=== PATIENT | male | born 1940 | race Caucasian/White ===

== ENCOUNTER 2022-02-16 16:10 | Inpatient (IN) ==
[2022-02-17 05:02] LABS: Basophils # 0.1 K/mcL (0.0-0.2); Basophils % 0.4 %; Eosinophils # 0.5 K/mcL (0.0-0.6); Eosinophils % 4.1 %; Hematocrit 33.4 % (37.5-50.1); Hemoglobin 10.8 g/dL (12.9-16.9); Immature Granulocytes % 1.4 % (0-4); Lymphocytes # 1.8 K/mcL (0.6-4.6); Lymphocytes % 15.5 %; Mean Corpuscular HGB Conc 32.3 g/dL (31.6-35.5); Mean Corpuscular Hemoglobin 27.9 pg (28.0-33.3); Mean Corpuscular Volume 86.3 fL (83.0-100.0); Monocytes % 8.7 %; Neutrophils # 8.2 K/mcL (1.6-8.9); Platelet Count 245 K/mcL (140-400); Red Blood Count 3.87 M/mcL (4.19-5.50); Red Cell Distribution Width 15.8 % (11.5-14.5); Segmented Neutrophils % 69.9 %; White Blood Count 11.7 K/mcL (4.3-11.1)
[2022-02-17 05:29] LABS: BUN/Creatinine Ratio 21 (6-26); Blood Urea Nitrogen 26 mg/dL (8-23); Calcium 9.2 mg/dL (8.6-10.3); Carbon Dioxide 29 mEq/L (23-29); Chloride 99 mEq/L (98-107); Glucose 95 mg/dL (70-105); Osmolality,Calculated 287 (280-300); Potassium 4.2 mEq/L (3.5-5.1); Sodium 136 mEq/L (136-145); eGFR For African Americans > 60 (> 60); eGFR For Non-African Americans 57 (> 60)
[2022-02-17] MEDS ORDERED: *HR* Enoxaparin 40 MG/0.4 ML SYRINGE SQ SCH (07:00)
[2022-02-17] MEDS ORDERED: Sennosides/Docusate Sodium TABLET PO PRN (14:41)
[2022-02-17] MEDS ORDERED: polyethylene glycoL 3350 17 GM POWD.PACK PO PRN (14:41)
[2022-02-17] MEDS: Budesonide/Formoterol 160/4.5 1 PUFF INH IH SCH ×2 (17:09→21:01)
[2022-02-17] MEDS: Aspirin Enteric Coated 81 MG Tablet PO SCH (21:08)
[2022-02-18] MEDS: Budesonide/Formoterol 160/4.5 1 PUFF INH IH SCH ×2 (07:29→20:58)
[2022-02-18] MEDS: Aspirin Enteric Coated 81 MG Tablet PO SCH (08:27)
[2022-02-18] MEDS: GuaiFENesin Liq 200 MG/10 ML UDC PO PRN (20:31)
[2022-02-18] MEDS: Acetaminophen 325 MG TABLET PO PRN (20:31)
[2022-02-19 05:19] LABS: Hematocrit 33.7 % (37.5-50.1); Mean Corpuscular HGB Conc 32.6 g/dL (31.6-35.5); Mean Corpuscular Hemoglobin 27.9 pg (28.0-33.3); Mean Corpuscular Volume 85.5 fL (83.0-100.0); Mean Platelet Volume 9.8 fL (9.4-12.4); Platelet Count 271 K/mcL (140-400); Red Blood Count 3.94 M/mcL (4.19-5.50); Red Cell Distribution Width 15.2 % (11.5-14.5); White Blood Count 9.1 K/mcL (4.3-11.1)
[2022-02-19 07:22] LABS: Alanine Aminotransferase 38 Units/L (7-52); Albumin 3.1 g/dL (3.5-5.7); Alkaline Phosphatase 61 Units/L (34-104); Aspartate Amino Transferase 38 Units/L (13-39); BUN/Creatinine Ratio 23 (6-26); Bilirubin,Total 0.4 mg/dL (0.3-1.0); Blood Urea Nitrogen 30 mg/dL (8-23); Calcium 9.2 mg/dL (8.6-10.3); Carbon Dioxide 34 mEq/L (23-29); Chloride 100 mEq/L (98-107); Globulin 3.1 g/dL (2.4-3.5); Glucose 98 mg/dL (70-105); Magnesium 2.2 mg/dL (1.6-2.6); Osmolality,Calculated 292 (280-300); Potassium 4.1 mEq/L (3.5-5.1); Sodium 138 mEq/L (136-145); Total Protein 6.2 g/dL (6.4-8.9); eGFR For African Americans > 60 (> 60); eGFR For Non-African Americans 54 (> 60)
[2022-02-19] MEDS: Acetaminophen 325 MG TABLET PO PRN (08:01)
[2022-02-19] MEDS: Aspirin Enteric Coated 81 MG Tablet PO SCH (08:01)
[2022-02-19] MEDS: Budesonide/Formoterol 160/4.5 1 PUFF INH IH SCH ×2 (10:20→20:16)
[2022-02-19] MEDS: GuaiFENesin Liq 200 MG/10 ML UDC PO PRN (20:28)
[2022-02-20] MEDS: Acetaminophen 325 MG TABLET PO PRN (06:28)
[2022-02-20] MEDS: Budesonide/Formoterol 160/4.5 1 PUFF INH IH SCH ×2 (08:12→20:13)
[2022-02-20] MEDS: Aspirin Enteric Coated 81 MG Tablet PO SCH (08:25)
[2022-02-20] MEDS: Fluticasone Propionate Nasal 50 MCG/SPRAY BOTTLE NS PRN (20:52)
[2022-02-21] MEDS: Aspirin Enteric Coated 81 MG Tablet PO SCH (08:48)
[2022-02-21] MEDS: Acetaminophen 325 MG TABLET PO PRN (08:48)
[2022-02-21] MEDS: Budesonide/Formoterol 160/4.5 1 PUFF INH IH SCH ×2 (09:21→20:15)
[2022-02-21] MEDS: Fluticasone Propionate Nasal 50 MCG/SPRAY BOTTLE NS PRN (19:47)
[2022-02-21] MEDS: GuaiFENesin Liq 200 MG/10 ML UDC PO PRN (19:53)
[2022-02-22 05:24] LABS: Basophils # 0.1 K/mcL (0.0-0.2); Basophils % 0.5 %; Eosinophils # 0.3 K/mcL (0.0-0.6); Eosinophils % 3.1 %; Hematocrit 33.8 % (37.5-50.1); Hemoglobin 10.8 g/dL (12.9-16.9); Immature Granulocytes % 0.5 % (0-4); Lymphocytes # 1.8 K/mcL (0.6-4.6); Lymphocytes % 17.8 %; Mean Corpuscular Hemoglobin 27.8 pg (28.0-33.3); Mean Corpuscular Volume 86.9 fL (83.0-100.0); Monocytes # 0.8 K/mcL (0.0-1.3); Monocytes % 7.8 %; Neutrophils # 7.2 K/mcL (1.6-8.9); Platelet Count 307 K/mcL (140-400); Red Blood Count 3.89 M/mcL (4.19-5.50); Red Cell Distribution Width 15.3 % (11.5-14.5); Segmented Neutrophils % 70.3 %; White Blood Count 10.3 K/mcL (4.3-11.1)
[2022-02-22 05:35] LABS: BUN/Creatinine Ratio 18 (6-26); Blood Urea Nitrogen 19 mg/dL (8-23); Calcium 9.3 mg/dL (8.6-10.3); Carbon Dioxide 30 mEq/L (23-29); Chloride 99 mEq/L (98-107); Glucose 95 mg/dL (70-105); Osmolality,Calculated 282 (280-300); Potassium 4.4 mEq/L (3.5-5.1); Sodium 135 mEq/L (136-145); eGFR For African Americans > 60 (> 60); eGFR For Non-African Americans > 60 (> 60)
[2022-02-22] MEDS: Budesonide/Formoterol 160/4.5 1 PUFF INH IH SCH ×2 (07:28→21:45)
[2022-02-22] MEDS: Aspirin Enteric Coated 81 MG Tablet PO SCH (09:43)
[2022-02-23] MEDS: Aspirin Enteric Coated 81 MG Tablet PO SCH (07:43)
[2022-02-23] MEDS: Budesonide/Formoterol 160/4.5 1 PUFF INH IH SCH (08:51)
[2022-02-23 09:05] VITALS: BP 148/62; PULSE 65; RESP 18; TEMP 99.4
[2022-02-23 14:49] VITALS: O2SAT 93
== END 2022-02-23 15:05 | disposition home or self-care (01) | DRG 559 ==
LOC: INPGRE 19:30
PROVIDERS: ADMIT Family Medicine; ATTEND Family Medicine